=== PATIENT | female | born 1990 | race African-American/Black ===

== ENCOUNTER 2019-03-23 17:47 | Emergency (ER) | payer MEDICAID ==
[~2019-03-23] VITALS: Ht 167.6 cm; Wt 108.0 kg
[2019-03-23 18:20] VITALS: BP 179/103
--- NOTE | 2019-03-23 18:30 | PHYS DOC ---
Past Medical History Past Medical History: No Pertinent History (KARINE KANG APRN) Past Surgical History: Cholecystectomy (KARINE KANG APRN) Alcohol Use: None Drug Use: None (DEWEYDonavanKARINE APRN) Adult General Chief Complaint Chief Complaint: OTHER COMPLAINTS HPI HPI Patient is a 28 year old female who presents to the ED today requesting a test, she states her last menstrual cycle was February 13, 2019. She is a 6 para 6 denies any other symptoms. She is requesting a test only (KARINE KANG APRN) Review of Systems Review of Systems Constitutional: Denies fever or chills [] GI: Requesting a test. Denies abdominal pain, nausea, vomiting, bloody stools or diarrhea [] : Denies dysuria or hematuria [] Musculoskeletal: Denies back pain or joint pain [] Integument: Denies rash or skin lesions [] Neurologic: Denies headache, focal weakness or sensory changes [] All other systems were reviewed and found to be within normal limits, except as documented in this note. (DEWEYKARINE Go APRN) Physical Exam Physical Exam Constitutional: Well developed, well nourished, no acute distress, non-toxic appearance. [] Skin: Warm, dry, no erythema, no rash. [] Back: No tenderness, no CVA tenderness. [] Extremities: No tenderness, no cyanosis, no clubbing, ROM intact, no edema. [] Neurologic: Alert and oriented X 3, normal motor function, normal sensory function, no focal deficits noted. [] Psychologic: Affect normal, judgement normal, mood normal. [] (FREDOKARINE COLLINS APRN) Current Patient Data Vital Signs Vital Signs Date Time Temp Pulse Resp B/P (MAP) Pulse Ox O2 Delivery O2 Flow Rate FiO2 03/23/19 18:20 98.6 111 16 179/103 (128) 99 Room Air 98.6 (MARC QUAN MD) Lab Values Laboratory Tests Test 03/23/19 18:10 03/23/19 18:30 POC Urine HCG, Qualitative Hcg positive (Negative) Urine Collection Type Unknown Urine Color Yellow Urine Clarity Clear Urine pH 6.0 Urine Specific [place] >=1.030 Urine Protein Negative mg/dL (NEG-TRACE) Urine Glucose (UA) Negative mg/dL (NEG) Urine Ketones (Stick) Negative mg/dL (NEG) Urine Blood Negative (NEG) Urine Nitrite Negative (NEG) Urine Bilirubin Negative (NEG) Urine Urobilinogen Dipstick 1.0 mg/dL (0.2 mg/dL) Urine Leukocyte Esterase Negative (NEG) Urine RBC 0 /HPF (0-2) Urine WBC Occ /HPF (0-4) Urine Squamous Epithelial Cells Mod /LPF Urine Bacteria Few /HPF (0-FEW) Urine Mucus Marked /LPF Urine Yeast Present /HPF (MARC QUAN MD) EKG EKG [] (KARINE KANG APRN) Radiology/Procedures Radiology/Procedures [] (KARINE KANG APRN) Course & Med Decision Making Course & Med Decision Making Pertinent Labs and Imaging studies reviewed. (See chart for details) This is a 28-year-old female patient 6 para 6 presenting to the ED today requesting a test because she is late for her cycle. Her last menstrual cycle was February 13, 2019. Positive urine hCG. Discharged to home. Follow-up with an HYDRO SPRAYER OPERATOR. (KARINE KANG APRN) Course & Med Decision Making Staff Physician Addendum: I was working in the ER during the course of this patient's visit. I was available for consultation as needed, but I was not directly involved in the care of this patient. (MARC QUAN MD) Dragon Disclaimer Dragon Disclaimer This electronic medical record was generated, in whole or in part, using a voice recognition dictation system. (KARINE KANG APRN) Departure Departure Impression: Primary Impression: Disposition: 01 HOME, SELF-CARE Condition: STABLE Referrals: UNKNOWN PCP NAME (PCP) ADRI DEAN MD Follow-up with your HYDRO SPRAYER OPERATOR for care Patient Instructions: ABCs of Additional Instructions: Congratulations your test is positive. Please follow-up with your HYDRO SPRAYER OPERATOR as soon as possible, consider taking vitamins. Problem Qualifiers Primary Impression: Weeks of gestation: less than 8 weeks Qualified Codes: Z3A.01 - Less than 8 weeks gestation of KARINE KANG APRN Mar 23, 2019 18:30 MARC QUAN MD Mar 24, 2019 01:21
[2019-03-23 18:37] LABS: BILIRUBIN,URINE NEGATIVE (NEG); CLARITY,URINE CLEAR; COLOR,URINE YELLOW; NITRITE,URINE NEGATIVE (NEG); PROTEIN,URINE NEGATIVE (NEG-TRACE)
[2019-03-23 18:48] LABS: RBC,URINE 0 /HPF (0-2); WBC,URINE OCC /HPF (0-4)
[2019-03-23 18:49] LABS: BACTERIA,URINE FEW /HPF (0-FEW); SQUAMOUS EPITHELIAL CELL,UR MOD /LPF; YEAST,URINE PRESENT /HPF
[2019-05-10] MEDS ORDERED: PNV1TABL78 PO (12:36)
== END 2019-03-23 18:46 | disposition home or self-care (01) ==
LOC: ER 17:47
DX: Z34.81 Encounter for supervision of other normal pregnancy, first trimester (principal); Z90.49 Acquired absence of other specified parts of digestive tract; Z3A.01 Less than 8 weeks gestation of pregnancy
CPT/HCPCS: 81001; 81025; 99283

== ENCOUNTER 2019-05-02 20:54 | Emergency (ER) | payer MEDICAID ==
[~2019-05-02] VITALS: Ht 167.6 cm; Wt 110.2 kg
[2019-05-02 21:17] LABS: BILIRUBIN,URINE NEGATIVE (NEG); CLARITY,URINE CLOUDY; COLOR,URINE YELLOW; NITRITE,URINE NEGATIVE (NEG); PH,URINE 5.5; PROTEIN,URINE NEGATIVE (NEG-TRACE); UROBILINOGEN,URINE 0.2 mg/dL (0.2 mg/dL)
[2019-05-02 21:20] LABS: SQUAMOUS EPITHELIAL CELL,UR MANY /LPF
[2019-05-02 21:21] LABS: BACTERIA,URINE MODERATE /HPF (0-FEW); WBC,URINE >40 /HPF (0-4)
--- NOTE | 2019-05-02 21:24 | PHYS DOC ---
Past Medical History Past Medical History: No Pertinent History Past Surgical History: Cholecystectomy Alcohol Use: None Drug Use: None Adult General Chief Complaint Chief Complaint: VAGINAL BLEEDING HPI HPI 28-year-old female presents to the emergency department with complaints of vaginal bleeding. Patient's approximately 8+ weeks . Last nausea. February 13, 2019. Patient states she went to why she knows blood on her toilet paper, she is well describes a clear discharge. No blood in her underwear. She describes small sharp pain in her vagina upon arrival however otherwise unremarkable. Patient denies any past medical history. She denies any allergies to medications at this time aside from Benadryl. Patient's blood type is O+. Review of Systems Review of Systems Constitutional: Denies fever or chills [] Respiratory: Denies cough or shortness of breath [] Cardiovascular: No additional information not addressed in HPI [] GI: Denies abdominal pain, nausea, vomiting, bloody stools or diarrhea, spotting present on toilet paper[] : Denies dysuria or hematuria [] Neurologic: Denies headache, focal weakness or sensory changes [] Endocrine: Denies polyuria or polydipsia [] All other systems were reviewed and found to be within normal limits, except as documented in this note. Allergies Allergies Allergies Coded Allergies Type Severity Reaction Last Updated Verified camphor Allergy Intermediate 05/02/19 Yes diphenhydramine Allergy Intermediate 05/02/19 Yes eucalyptus Allergy Intermediate 05/02/19 Yes menthol Allergy Intermediate 05/02/19 Yes petrolatum,white Allergy Intermediate 05/02/19 Yes turpentine oil Allergy Intermediate 05/02/19 Yes Physical Exam Physical Exam Constitutional: Well developed, well nourished, no acute distress, non-toxic appearance. [] HENT: Normocephalic, atraumatic, bilateral external ears normal, oropharynx ti st, no oral exudates, nose normal. [] Eyes: PERRLA, EOMI, conjunctiva normal, no discharge. [] Neck: Normal range of motion, no tenderness, supple, no stridor. [] Cardiovascular:Heart rate regular rhythm, no murmur [] Lungs & Thorax: Bilateral breath sounds clear to auscultation [] Abdomen: Bowel sounds normal, soft, no tenderness, no masses, no pulsatile masses. [] : speculum exam reveals no bleeding, dark mucous within vault and some yeast present. No tenderness of cervix nor adnexa. Skin: Warm, dry, no erythema, no rash. [] Back: No tenderness, no CVA tenderness. [] Extremities: No tenderness, no cyanosis, no clubbing, ROM intact, no edema. [] Neurologic: Alert and oriented X 3, normal motor function, normal sensory function, no focal deficits noted. [] Psychologic: Affect normal, judgement normal, mood normal. [] Current Patient Data Vital Signs Vital Signs Date Time Temp Pulse Resp B/P (MAP) Pulse Ox O2 Delivery O2 Flow Rate FiO2 05/02/19 21:02 98.0 109 16 150/93 (112) 97 Room Air 98.0 Lab Values Laboratory Tests Test 05/02/19 20:59 05/02/19 21:10 05/02/19 21:18 Urine Collection Type Unknown Urine Color Yellow Urine Clarity Cloudy Urine pH 5.5 Urine Specific [place] 1.025 Urine Protein Negative mg/dL (NEG-TRACE) Urine Glucose (UA) Negative mg/dL (NEG) Urine Ketones (Stick) Negative mg/dL (NEG) Urine Blood Large (NEG) Urine Nitrite Negative (NEG) Urine Bilirubin Negative (NEG) Urine Urobilinogen Dipstick 0.2 mg/dL (0.2 mg/dL) Urine Leukocyte Esterase Moderate (NEG) Urine RBC 6-10 /HPF (0-2) Urine WBC >40 /HPF (0-4) Urine Squamous Epithelial Cells Many /LPF Urine Bacteria Moderate /HPF (0-FEW) Urine Mucus Marked /LPF POC Urine HCG, Qualitative Hcg positive (Negative) White Blood Count 7.4 x10^3/uL (4.0-11.0) Red Blood Count 4.14 x10^6/uL (3.50-5.40) Hemoglobin 12.8 g/dL (12.0-15.5) Hematocrit 38.0 % (36.0-47.0) Mean Corpuscular Volume 92 fL (79-100) Mean Corpuscular Hemoglobin 31 pg (25-35) Mean Corpuscular Hemoglobin Concent 34 g/dL (31-37) Red Cell Distribution Width 13.5 % (11.5-14.5) Platelet Count 259 x10^3/uL (140-400) Neutrophils (%) (Auto) 64 % (31-73) Lymphocytes (%) (Auto) 27 % (24-48) Monocytes (%) (Auto) 7 % (0-9) Eosinophils (%) (Auto) 2 % (0-3) Basophils (%) (Auto) 1 % (0-3) Neutrophils # (Auto) 4.7 x10^3/uL (1.8-7.7) Lymphocytes # (Auto) 2.0 x10^3/uL (1.0-4.8) Monocytes # (Auto) 0.5 x10^3/uL (0.0-1.1) Eosinophils # (Auto) 0.1 x10^3/uL (0.0-0.7) Basophils # (Auto) 0.1 x10^3/uL (0.0-0.2) Maternal Serum HCG Beta Subunit 8369 mIU/mL (0-5) H Sodium Level 139 mmol/L (136-145) Potassium Level 3.6 mmol/L (3.5-5.1) Chloride Level 103 mmol/L (98-107) Carbon Dioxide Level 24 mmol/L (21-32) Anion Gap 12 (6-14) Blood Urea Nitrogen 12 mg/dL (7-20) Creatinine 0.8 mg/dL (0.6-1.0) Estimated GFR (Cockcroft-Gault) 103.3 BUN/Creatinine Ratio 15 (6-20) Glucose Level 106 mg/dL (70-99) H Calcium Level 9.0 mg/dL (8.5-10.1) Total Bilirubin 0.2 mg/dL (0.2-1.0) Aspartate Amino Transferase (AST) 15 U/L (15-37) Alanine Aminotransferase (ALT) 13 U/L (14-59) L Alkaline Phosphatase 60 U/L (46-116) Total Protein 7.9 g/dL (6.4-8.2) Albumin 3.8 g/dL (3.4-5.0) Albumin/Globulin Ratio 0.9 (1.0-1.7) L Laboratory Tests 05/02/19 21:18 Laboratory Tests 05/02/19 21:18 EKG EKG [] Radiology/Procedures Radiology/Procedures [][facility] [address] [place] [address] IMAGING REPORT Signed PATIENT: INGRID MCLEAN ACCOUNT: [id number] : 1990 LOCATION: ER AGE: 28 SEX: F EXAM STATUS: REG ER ORD. PHYSICIAN: ADE ADAMS MD REASON: with bleeding PROCEDURE: OB TRANSVAG Examination: OB TRANSVAG History: with bleeding Comparison/Correlation: None Findings: Transvaginal OB ultrasound exam was performed. Uterus measures 12 cm x 7.6 x 6.9 cm. Intrauterine gestational sac is present with mean diameter corresponding to 7 weeks 2 days gestation. pole is present with crown-rump length of 1.1 cm corresponding to 7 weeks 2 day gestation. No heart rate identified. No cardiac motion visualized. Subchorionic hemorrhage is present. Myometrium is unremarkable. No pelvic free fluid. Right ovary measures 2.4 cm x 2.3 cm x 1.9 cm. No right adnexal mass. Normal right adnexal flow evident. Left ovary is not visualized. Impression: Single intrauterine gestation is present. Heart rate and cardiac motion however are not identified in those the pole has a crown-rump length measurement corresponding 7 weeks 2 days gestation. Findings compatible with failed early . Subchorionic hemorrhage. Electronically signed by: Mandeep Chavez MD (05/02/2019 10:15 PM) [facility] DICTATED and SIGNED BY: MANDEEP CHAVEZ MD DATE: 05/02/19 2061 Course & Med Decision Making Course & Med Decision Making Pertinent Labs and Imaging studies reviewed. (See chart for details) []28-year-old female presents to the emergency department with complaints of vaginal bleeding. Patient's approximately 8+ weeks . Last nausea. February 13, 2019. Patient states she went to why she knows blood on her toilet paper, she is well describes a clear discharge. No blood in her underwear. She describes small sharp pain in her vagina upon arrival however otherwise unremarkable. Patient denies any past medical history. She denies any allergies to medications at this time aside from Benadryl. Patient's blood type is O+. Labs/Imaging reviewed Imaging reveals demise Discussed with DR. KENNEY - will see patient in office this week and follow up Discussed dc with patient at bedside Jeremy Disclaimer Jeremy Disclaimer This electronic medical record was generated, in whole or in part, using a voice recognition dictation system. Departure Departure Impression: Primary Impression: demise Referrals: UNKNOWN PCP NAME (PCP) FELIZ KENNEY Jr, MD Patient Instructions: Intrauterine Demise Additional Instructions: Recommend follow up with PCP 3 - 5 days Return to the ER with worsening symptoms, intractable pain, fever, altered mental status Tylenol/Motrin as needed for pain Call Dr. Kenney office in AM for follow up this week Beta HCG 8300 ADE ADAMS MD May 02, 2019 21:24
[2019-05-02 21:29] LABS: BASO # 0.1 x10^3/uL (0.0-0.2); BASO % 1 % (0-3); EOS # 0.1 x10^3/uL (0.0-0.7); EOS % 2 % (0-3); HEMOGLOBIN 12.8 g/dL (12.0-15.5); LYMPH % 27 % (24-48); MEAN CORPUSCULAR HEMOGLOBIN 31 pg (25-35); MEAN CORPUSCULAR HGB CONC 34 g/dL (31-37); MEAN CORPUSCULAR VOLUME 92 fL (79-100); MONO # 0.5 x10^3/uL (0.0-1.1); MONO % 7 % (0-9); NEUT # 4.7 x10^3/uL (1.8-7.7); NEUT % 64 % (31-73); PLATELET COUNT 259 x10^3/uL (140-400); RED BLOOD COUNT 4.14 x10^6/uL (3.50-5.40); RED CELL DISTRIBUTION WIDTH 13.5 % (11.5-14.5); WHITE BLOOD COUNT 7.4 x10^3/uL (4.0-11.0)
[2019-05-02 21:36] LABS: CREATININE 0.8 mg/dL (0.6-1.0); GFR 103.3; POTASSIUM 3.6 mmol/L (3.5-5.1)
[2019-05-02 21:43] LABS: ALBUMIN 3.8 g/dL (3.4-5.0); ALBUMIN/GLOBULIN RATIO 0.9 (1.0-1.7); TOTAL BILIRUBIN 0.2 mg/dL (0.2-1.0); TOTAL PROTEIN 7.9 g/dL (6.4-8.2)
--- NOTE | 2019-05-02 22:17 | RAD ---
Examination: OB TRANSVAG History: with bleeding Comparison/Correlation: None Findings: Transvaginal OB ultrasound exam was performed. Uterus measures 12 cm x 7.6 x 6.9 cm. Intrauterine gestational sac is present with mean diameter corresponding to 7 weeks 2 days gestation. pole is present with crown-rump length of 1.1 cm corresponding to 7 weeks 2 day gestation. No heart rate identified. No cardiac motion visualized. Subchorionic hemorrhage is present. Myometrium is unremarkable. No pelvic free fluid. Right ovary measures 2.4 cm x 2.3 cm x 1.9 cm. No right adnexal mass. Normal right adnexal flow evident. Left ovary is not visualized. Impression: Single intrauterine gestation is present. Heart rate and cardiac motion however are not identified in those the pole has a crown-rump length measurement corresponding 7 weeks 2 days gestation. Findings compatible with failed early . Subchorionic hemorrhage. Electronically signed by: Mandeep Schmitz MD (05/02/2019 10:15 PM) [facility]
[2019-05-02 23:09] VITALS: BP 155/105
== END 2019-05-02 23:47 | disposition home or self-care (01) ==
LOC: ER 20:54
DX: O36.4XX0 Maternal care for intrauterine death, not applicable or unspecified (principal); Z3A.01 Less than 8 weeks gestation of pregnancy; Z90.49 Acquired absence of other specified parts of digestive tract; Z88.5 Allergy status to narcotic agent; Z88.8 Allergy status to other drugs, medicaments and biological substances; Z91.018 Allergy to other foods
CPT/HCPCS: 36415; 76817; 80053; 81001; 81025; 84702; 85025; 86900; 86901; 87086; 99285-25

== ENCOUNTER 2019-05-11 11:21 | Day surgery (SDC) | payer MEDICAID ==
[~2019-05-11] VITALS: Ht 167.6 cm; Wt 107.0 kg
[~2019-05-11 11:21] MED LIST: HYDROmorphone 2 MG/ML VIAL IV PRN; IV RINGERS,LACTATED 1000ML 1,000 ML IV SCH; LIDOCAINE 1% PF 2 ML VIAL. ID PRN; MORPHINE SULFATE 2 MG/ML VIAL. IV PRN; ONDANSETRON PF 4 MG/2 ML VIAL. IV PRN; PNV1TABL78 PO; PROCHLORPERAZINE 10 MG/2 ML VIAL. IV PRN; fentaNYL PF VIAL 100 MCG/2 ML VIAL IV PRN
[2019-05-11 12:46] LABS: BASO # 0.1 x10^3/uL (0.0-0.2); BASO % 1 % (0-3); EOS # 0.1 x10^3/uL (0.0-0.7); EOS % 2 % (0-3); HEMATOCRIT 38.2 % (36.0-47.0); HEMOGLOBIN 12.7 g/dL (12.0-15.5); LYMPH # 1.9 x10^3/uL (1.0-4.8); LYMPH % 30 % (24-48); MEAN CORPUSCULAR HEMOGLOBIN 31 pg (25-35); MEAN CORPUSCULAR HGB CONC 33 g/dL (31-37); MEAN CORPUSCULAR VOLUME 93 fL (79-100); MONO # 0.4 x10^3/uL (0.0-1.1); MONO % 6 % (0-9); NEUT # 3.9 x10^3/uL (1.8-7.7); NEUT % 61 % (31-73); PLATELET COUNT 219 x10^3/uL (140-400); RED BLOOD COUNT 4.12 x10^6/uL (3.50-5.40); RED CELL DISTRIBUTION WIDTH 13.3 % (11.5-14.5); WHITE BLOOD COUNT 6.3 x10^3/uL (4.0-11.0)
[2019-05-11] MEDS ORDERED: ceFAZolin 2GM PREMIX 2 GM/50 ML BAG IV ONE (14:00)
[2019-05-11] MEDS ORDERED: OXYTOCIN 10 UNIT/ML VIAL. ONE ×2 (14:01→15:06)
[2019-05-11] MEDS ORDERED: VASOPRESSIN 20 UNIT/ML VIAL. ONE ×2 (14:01→14:03)
[2019-05-11] MEDS ORDERED: KETOROLAC 30 MG/ML VIAL. ONE ×2 (14:50→14:57)
[2019-05-11] MEDS ORDERED: LIDOCAINE 2% PF 5 ML VIAL. ONE (14:50)
[2019-05-11] MEDS ORDERED: FAMOTIDINE 20 MG/2 ML VIAL ONE (14:50)
[2019-05-11] MEDS ORDERED: DEXAMETHASONE SOD PHOS 20 MG/5 ML VIAL. ONE (14:50)
[2019-05-11] MEDS ORDERED: PROPOFOL 20 ML IV ONE (14:50)
[2019-05-11] MEDS ORDERED: fentaNYL PF VIAL 100 MCG/2 ML VIAL ONE ×2 (14:50→15:43)
[2019-05-11] MEDS ORDERED: ONDANSETRON PF 4 MG/2 ML VIAL. ONE (14:50)
[2019-05-11] MEDS ORDERED: SEVOFLURANE 16 TO 30 MINUTES. IH ONE (15:12)
[2019-05-11] MEDS ORDERED: SILVER NITRATE STICK TP ONE ×2 (15:14→15:15)
--- NOTE | 2019-05-11 15:22 | PDOC ---
BRIEF OPERATIVE NOTE Date: May 11, 2019 Pre-Op Diagnosis Missed AB Post-Op Diagnosis Same Procedure Performed Suction D&C Surgeon Dr. Kenney Anesthesia Type: General Blood Loss 200 ml Specimens Obtained POC Findings POC Complications none Operative Note see dictation FELIZ KENNEY Jr, MD May 11, 2019 15:22
--- NOTE | 2019-05-11 15:24 | DISCH ---
DISCHARGE INSTRUCTIONS Condition on Discharge Condition on Discharge: Stable Activity After Discharge Activity Instructions for Disc: Activity as tolerated Lifting Instructions after Dis: No heavy lifting Driving Instructions after Dis: Do not drive today Diet after Discharge Diet after Discharge: Regular Contacting the DRRiley after DC Call your doctor for: Concerns you may have Follow-Up Follow up with: Dr. Kenney in 1 week. FELIZ KENNEY Jr, MD May 11, 2019 15:24
[2019-05-11] MEDS ORDERED: PROCHLORPERAZINE 10 MG/2 ML VIAL. ONE (15:43)
[2019-05-11] MEDS ORDERED: OXYC-325 PO (16:23)
[2019-05-11] MEDS ORDERED: oxyCODONE/APAP 5/325 1 TAB TABLET PO ONE (16:30)
[2019-05-11 16:35] VITALS: BP 130/84
--- NOTE | 2019-05-11 21:08 | OP ---
DATE OF SURGERY: 05/11/2019 PREOPERATIVE DIAGNOSIS: Missed . POSTOPERATIVE DIAGNOSIS: Missed . PROCEDURE: Suction D and C. SURGEON: Jaspreet Kenney MD ANESTHESIA: GETA. ESTIMATED BLOOD LOSS: 100 mL. COMPLICATIONS: None. FINDINGS: Products of conception. SUMMARY: This is a 28-year-old with a 7-week missed who was counseled on risks, benefits and expectations of suction D and C. She then desired to proceed. DESCRIPTION OF PROCEDURE: The patient was taken to surgery suite and placed in dorsal lithotomy position, prepped with Betadine solution and draped in a sterile fashion. After adequate anesthesia, weighted speculum and curved Coleman placed vaginally. Anterior lip of the cervix grasped with a single tooth tenaculum. Cervix was dilated with Baugh dilators. An 8 mm curved-tip suction curette was then passed, removing tissue and blood products. A sharp curettage took place to the fine gritty surface palpated circumferentially. Suction curette was passed once again removing additional blood products and products of conception. The single tooth tenaculum was removed. Silver nitrate was applied to the area where the single tooth tenaculum was placed for hemostasis. Weighted speculum was removed. Uterus palpated firm. The patient tolerated the procedure well and was taken to recovery room in stable condition. Sponge and needle count correct x 3. JASPREET KENNEY MD DR: VIVIANA/elly JOB#: [id number] / [id number]
== END 2019-05-11 17:05 | disposition home or self-care (01) ==
LOC: SURG 11:21
PROVIDERS: ATTEND Obstetrics & Gynecology
DX: O02.1 Missed abortion (principal); G43.909 Migraine, unspecified, not intractable, without status migrainosus; G47.30 Sleep apnea, unspecified; F32.9 Major depressive disorder, single episode, unspecified; F41.9 Anxiety disorder, unspecified; E66.9 Obesity, unspecified; Z68.38 Body mass index [BMI] 38.0-38.9, adult; Z90.49 Acquired absence of other specified parts of digestive tract
CPT/HCPCS: 36415; 59820; 85025; 86850; 86900; 86901; A7015; J0696; J0780; J1100; J1885; J2001; J2405; J2590; J2704; J3010; J3490

== ENCOUNTER 2019-10-10 16:37 | Emergency (ER) | payer MEDICAID ==
[~2019-10-10] VITALS: Ht 167.6 cm; Wt 107.7 kg
[~2019-10-10 16:37] MED LIST changes: -HYDROmorphone 2 MG/ML VIAL IV PRN; -IV RINGERS,LACTATED 1000ML 1,000 ML IV SCH; -LIDOCAINE 1% PF 2 ML VIAL. ID PRN; -MORPHINE SULFATE 2 MG/ML VIAL. IV PRN; -ONDANSETRON PF 4 MG/2 ML VIAL. IV PRN; +OXYC-325 PO; -PROCHLORPERAZINE 10 MG/2 ML VIAL. IV PRN; -fentaNYL PF VIAL 100 MCG/2 ML VIAL IV PRN
[2019-10-10 18:09] LABS: BASO # 0.1 x10^3/uL (0.0-0.2); BASO % 1 % (0-3); EOS # 0.1 x10^3/uL (0.0-0.7); EOS % 2 % (0-3); HEMATOCRIT 34.6 % (36.0-47.0); HEMOGLOBIN 11.7 g/dL (12.0-15.5); LYMPH # 1.7 x10^3/uL (1.0-4.8); LYMPH % 22 % (24-48); MEAN CORPUSCULAR HEMOGLOBIN 31 pg (25-35); MEAN CORPUSCULAR HGB CONC 34 g/dL (31-37); MEAN CORPUSCULAR VOLUME 92 fL (79-100); MONO # 0.5 x10^3/uL (0.0-1.1); MONO % 6 % (0-9); NEUT # 5.6 x10^3/uL (1.8-7.7); NEUT % 70 % (31-73); PLATELET COUNT 235 x10^3/uL (140-400); RED BLOOD COUNT 3.77 x10^6/uL (3.50-5.40); RED CELL DISTRIBUTION WIDTH 13.6 % (11.5-14.5)
[2019-10-10 18:37] VITALS: BP 144/95
[2019-10-10] MEDS ORDERED: OMEP20CA16 PO (18:38)
--- NOTE | 2019-10-10 18:38 | PHYS DOC ---
Past Medical History Past Medical History: No Pertinent History Past Surgical History: Cholecystectomy Smoking Status: Never Smoker Alcohol Use: None Drug Use: None General Adult EDM: Chief Complaint: HEMATEMESIS/VOMITING BLOOD HPI: HPI: Patient is a 29 year old AA female who presents to the emergency department with complaints of bloody drainage in her throat for the last 4 days. Patient states she is currently , she is 8, para 6, with 1 miscarriage prior to 20 weeks. She denies any abdominal pain, vaginal bleeding, back pain, irregular vaginal discharge, dysuria, hematuria, fever, nausea, vomiting, or diarrhea. Patient states that she has had a little bit of nasal congestion recently that seems to be worse in the morning. She denies having a cough she states that every once in a while she will just produce a blood clot that comes up from her stomach into her throat. She currently denies any pain. She states she has had problems with indigestion throughout this but is not taking any medications for indigestion at this time. Her AIRCRAFT POWERPLANT REPAIRER is Dr. Kenney. Review of Systems: Review of Systems: Constitutional: Denies fever or chills. [] HENT: Denies ear pain or sore throat; see HPI. [] Respiratory: Denies cough or shortness of breath. [] Cardiovascular: Denies chest pain or edema. [] GI: Denies abdominal pain, nausea, vomiting, or diarrhea. [] : Denies dysuria. [] Musculoskeletal: Denies back pain or joint pain. [] Integument: Denies rash. [] Neurologic: Denies headache, focal weakness or sensory changes. [] Psychiatric: Denies depression or anxiety. [] Heart Score: Risk Factors: Risk Factors: DM, Current or recent (<one month) smoker, HTN, HLP, family history of CAD, obesity. Risk Scores: Score 0 - 3: 2.5% MACE over next 6 weeks - Discharge Home Score 4 - 6: 20.3% MACE over next 6 weeks - Admit for Clinical Observation Score 7 - 10: 72.7% MACE over next 6 weeks - Early Invasive Strategies Allergies: Allergies: Allergies Coded Allergies Type Severity Reaction Last Updated Verified camphor Allergy Intermediate 05/11/19 Yes diphenhydramine Allergy Intermediate 05/11/19 Yes eucalyptus Allergy Intermediate 05/11/19 Yes menthol Allergy Intermediate 05/11/19 Yes petrolatum,white Allergy Intermediate 05/11/19 Yes turpentine oil Allergy Intermediate 05/11/19 Yes Physical Exam: PE: Constitutional: Well developed, well nourished, no acute distress, non-toxic appearance. [] HENT: Normocephalic, atraumatic, bilateral external ears normal, oropharynx moist, no oral exudates, erythema and edema of bilateral nasal turbinates, posterior pharynx normal, Eyes: PERRLA, EOMI, conjunctiva normal, no discharge. [] Neck: Normal range of motion, supple, no stridor. [] Cardiovascular:Heart rate regular rhythm, no murmur [] Lungs & Thorax: Bilateral breath sounds clear to auscultation, Respirations even and unlabored, no retractions, no respiratory distress [] Abdomen: Bowel sounds normal, soft, no tenderness Skin: Warm, dry, no erythema, no rash. [] Extremities: No cyanosis, ROM intact, no edema. [] Neurologic: Alert and oriented X 3, no focal deficits noted. [] Psychologic: Affect normal, judgement normal, mood normal. [] Current Patient Data: Labs: Laboratory Tests Test 10/10/19 17:59 White Blood Count 8.0 x10^3/uL (4.0-11.0) Red Blood Count 3.77 x10^6/uL (3.50-5.40) Hemoglobin 11.7 g/dL (12.0-15.5) L Hematocrit 34.6 % (36.0-47.0) L Mean Corpuscular Volume 92 fL (79-100) Mean Corpuscular Hemoglobin 31 pg (25-35) Mean Corpuscular Hemoglobin Concent 34 g/dL (31-37) Red Cell Distribution Width 13.6 % (11.5-14.5) Platelet Count 235 x10^3/uL (140-400) Neutrophils (%) (Auto) 70 % (31-73) Lymphocytes (%) (Auto) 22 % (24-48) L Monocytes (%) (Auto) 6 % (0-9) Eosinophils (%) (Auto) 2 % (0-3) Basophils (%) (Auto) 1 % (0-3) Neutrophils # (Auto) 5.6 x10^3/uL (1.8-7.7) Lymphocytes # (Auto) 1.7 x10^3/uL (1.0-4.8) Monocytes # (Auto) 0.5 x10^3/uL (0.0-1.1) Eosinophils # (Auto) 0.1 x10^3/uL (0.0-0.7) Basophils # (Auto) 0.1 x10^3/uL (0.0-0.2) Laboratory Tests 10/10/19 17:59 Vital Signs: Vital Signs Date Time Temp Pulse Resp B/P (MAP) Pulse Ox O2 Delivery O2 Flow Rate FiO2 10/10/19 16:41 98.5 102 20 147/73 (97) 100 Room Air 98.5 EKG: EKG: [] Radiology/Procedures: Radiology/Procedures: [] Course & Med Decision Making: Course & Med Decision Making Pertinent Labs and Imaging studies reviewed. (See chart for details) Patient is a 29-year-old female who presented to the emergency room with complaints of having episodes where she is producing bloody mucus from her throat for the last 4 days. CBC revealed hemoglobin of 11.7, hematocrit of 34.6, physical exam revealed erythema and edema of nasal turbinates bilaterally no post nasal drainage on exam. I spoke with Dr. Kenney at approximately 1813 and advised of reports of indigestion from the patient. Will prescribe patient omeprazole 20 mg PO daily and encourage patient to follow GERD diet. Pt to follow up with Dr. Kenney as planned. Return to the ER if symptoms worsen or fever develops. Patient verbalized an understanding of home care, medications, follow-up, and return to ED instructions and was in agreement with the plan of care. [] Dragon Disclaimer: Dragon Disclaimer: This electronic medical record was generated, in whole or in part, using a voice recognition dictation system. Departure Departure Impression: Primary Impression: GERD (gastroesophageal reflux disease) Qualified Codes: K21.9 - Gastro-esophageal reflux disease without esophagitis Disposition: HOME, SELF-CARE Condition: STABLE Referrals: NO PCP (PCP) FELIZ KENNEY Jr, MD Patient Instructions: Diet for Gastroesophageal Reflux Disease, Adult, He artburn During , [id number] Additional Instructions: Fill the prescription and use as directed. Follow the diet instructions provided. Follow up with Dr. Kenney as planned. Return to the ER if symptoms worsen. Scripts Omeprazole (OMEPRAZOLE) 20 Mg Capsule.dr 1 CAP PO DAILY for 30 Days, #30 CAP 0 Refills Prov: IKE ZEPEDA CONTRACTOR FIELD HAULING 10/10/19 IKE ZEPEDA CONTRACTOR FIELD HAULING Oct 10, 2019 18:38
== END 2019-10-10 18:44 | disposition home or self-care (01) ==
LOC: ER 16:37
DX: O26.891 Other specified pregnancy related conditions, first trimester (principal); O99.511 Diseases of the respiratory system complicating pregnancy, first trimester; K21.9 Gastro-esophageal reflux disease without esophagitis; R09.81 Nasal congestion; R05 Cough; Z90.49 Acquired absence of other specified parts of digestive tract; Z91.018 Allergy to other foods; Z88.8 Allergy status to other drugs, medicaments and biological substances; Z88.6 Allergy status to analgesic agent; Z3A.13 13 weeks gestation of pregnancy
CPT/HCPCS: 36415; 85025; 99283

== ENCOUNTER → 2019-11-01 | Outpatient (CLI) | payer MEDICAID ==
[2019-10-10 18:37] VITALS: BP 144/95
[~2019-11-01] MED LIST changes: +OMEP20CA16 PO
--- NOTE | 2019-11-01 13:04 | RAD ---
EXAM: Obstetrics sonogram. HISTORY: Uterine size and dates discrepancy. TECHNIQUE: Sonographic imaging of a gravid uterus was performed. COMPARISON: 05/02/2019. FINDINGS: There is a single intrauterine fetus in presentation with a normal heart rate of 147 bpm. The heart, stomach, kidneys, bladder, spine, brain, facial profile and extremities are unremarkable. There is a three-vessel umbilical cord with normal insertion. There is a normal amniotic fluid volume. There is an anterior placenta without evidence of placenta previa. The cervix is closed and measures 6.1 cm in length. The biparietal diameter is 4.60 cm, corresponding with 19 weeks and 6 days. The head circumference is 17.69 cm, corresponding with 20 weeks and 1 day. The abdominal circumference is 14.13 cm, corresponding 19 weeks and 3 days. The femoral length is 3.36 cm, corresponding with 20 weeks and 4 days. The estimated gestational age patient combined ultrasound measurements is 20 weeks and 0 days and the estimated weight is 326 g. The estimated due date is 03/20/2020. IMPRESSION: 1. Single intrauterine fetus in breech presentation with normal heart rate and gestational age based on ultrasound measurements of 20 weeks and 0 days. The estimated gestational age based on LMP is 20 weeks and 4 days. 2. Unremarkable anatomy survey. Electronically signed by: Rocio Hinojosa MD (11/01/2019 1:01 PM) [id number]
== END | disposition home or self-care (01) ==
LOC: US 11:58
PROVIDERS: ATTEND Obstetrics & Gynecology
DX: O26.842 Uterine size-date discrepancy, second trimester (principal); O32.1XX1 Maternal care for breech presentation, fetus 1; Z3A.20 20 weeks gestation of pregnancy
CPT/HCPCS: 76805

== ENCOUNTER → 2020-02-29 | Outpatient (CLI) | payer MEDICAID | END | disposition home or self-care (01) | LOC: LAB 14:10 | PROVIDERS: ATTEND Obstetrics & Gynecology | DX: Z20.828 Contact with and (suspected) exposure to other viral communicable diseases (principal) | CPT/HCPCS: U0003-CS ==

== ENCOUNTER 2020-03-04 18:33 | Inpatient (IN) | payer MEDICAID ==
[~2020-03-04] VITALS: Ht 167.6 cm; Wt 117.5 kg
[2020-03-04] MEDS ORDERED: IV RINGERS,LACTATED 1000ML 1,000 ML IV SCH (18:48)
[2020-03-04] MEDS ORDERED: BUTORPHANOL 2 MG/ML VIAL. IVP PRN ×2 (19:00)
[2020-03-04] MEDS ORDERED: fentaNYL PF VIAL 100 MCG/2 ML VIAL IVP PRN ×2 (19:00)
[2020-03-04] MEDS ORDERED: TERBUTALINE 1 MG/ML VIAL. SQ PRN (19:00)
[2020-03-04] MEDS ORDERED: LIDOCAINE 1% PF 30 ML VIAL. INJ PRN (19:00)
[2020-03-04] MEDS ORDERED: 0.9 % SODIUM CHLORIDE 10 ML DISP.SYRIN. IV PRN (19:00)
[2020-03-04] MEDS ORDERED: OXYTOCIN 30 UNIT/500 ML PREMIX 500 ML IV PRN ×2 (19:00)
[2020-03-04] MEDS ORDERED: ACETAMINOPHEN 325 MG TABLET. PO PRN (19:00)
[2020-03-04] MEDS ORDERED: IBUPROFEN 400 MG TABLET. PO PRN (19:00)
[2020-03-04] MEDS ORDERED: ONDANSETRON PF 4 MG/2 ML VIAL. IVP PRN (19:00)
[2020-03-04 19:46] VITALS: BP 117/65
[2020-03-04 19:53] LABS: BASO % 1 % (0-3); EOS # 0.1 x10^3/uL (0.0-0.7); EOS % 2 % (0-3); HEMATOCRIT 32.7 % (36.0-47.0); HEMOGLOBIN 11.2 g/dL (12.0-15.5); LYMPH # 1.4 x10^3/uL (1.0-4.8); LYMPH % 18 % (24-48); MEAN CORPUSCULAR HEMOGLOBIN 32 pg (25-35); MEAN CORPUSCULAR HGB CONC 34 g/dL (31-37); MEAN CORPUSCULAR VOLUME 92 fL (79-100); MONO # 0.6 x10^3/uL (0.0-1.1); MONO % 7 % (0-9); NEUT # 5.8 x10^3/uL (1.8-7.7); NEUT % 73 % (31-73); PLATELET COUNT 200 x10^3/uL (140-400); RED BLOOD COUNT 3.54 x10^6/uL (3.50-5.40); RED CELL DISTRIBUTION WIDTH 13.6 % (11.5-14.5)
[2020-03-04 19:54] LABS: BILIRUBIN,URINE NEGATIVE (NEG); CLARITY,URINE CLEAR; COLOR,URINE YELLOW; NITRITE,URINE NEGATIVE (NEG); PH,URINE 5.5 (<5.0-8.0); PROTEIN,URINE NEGATIVE (NEG-TRACE); UROBILINOGEN,URINE 0.2 mg/dL (0.2 mg/dL)
[2020-03-04] MEDS ORDERED: DINOPROSTONE 10 MG SUPP.VAG VG ONE (20:00)
[2020-03-04] MEDS ORDERED: PENICILLIN G K 5,000,000 UNIT in IV DEXTROSE 5% 100ML 100 ML IV ONE (20:00)
[2020-03-04 20:01] LABS: SQUAMOUS EPITHELIAL CELL,UR MANY /LPF
[2020-03-04 20:02] LABS: BACTERIA,URINE FEW /HPF (0-FEW); RBC,URINE 0 /HPF (0-2)
[2020-03-05] MEDS: PENICILLIN G K 2,500,000 UNIT in IV DEXTROSE 5% 50 ML IV SCH ×4 (01:53→13:48)
[2020-03-05] MEDS ORDERED: OXYTOCIN PREMIX 30 UNIT/500 ML NS BAG. IV ONE (06:00)
--- NOTE | 2020-03-05 08:36 | PDOC1 ---
OB - History Hx of Present Care: Good Care Ultrasounds: Normal mid trimester US Obstetrical Complications: None Medical Complications: Other (CHTN) Past Family/Social History * Past Medical, Surgical, Family and Obstetric Histories reviewed from chart. Rubella: Immune RPR/VDRL: Negative GBS Status: Positive HBsAG: Negative OB - Chief Complaint & HPI Date of Admission: Date of Admission: Mar 04, 2020 at 18:33 Chief Complaint/History : 9 Para: 6 EGA: 38 Reason for admission: induction of labor (CHTN) Indication for induction: medical complication (CHTN) Admission Nurse Assessment Rev: Yes OB - Admission Exam Physical Exam Vitals: VS - Last 72 Hours, by Label Date Time Temp Pulse Resp B/P (MAP) Pulse Ox O2 Delivery O2 Flow Rate FiO2 03/05/20 07:46 84 138/90 03/04/20 19:46 98.8 130 18 117/65 (82) Room Air 98.8 HEENT: Normal Heart: Regular Rate Lungs: Clear Abdomen: Soft Extremities: Edema Reflexes: Normal Cervical Dilatation: 2cm Effacement: 50% Station: -3 Membranes: Intact Heart Rate: Normal Accelerations: Accelerations Present Decelerations: No decelerations Contractions on Admission: None Text A: 38 wks IUP CHTN GBS positive P: Admit IOL cervidil, then pitocin in am. Start Pen G in am for GBS prophylaxis. FELIZ LANG Jr, MD Mar 05, 2020 08:36
[2020-03-05] MEDS ORDERED: hydrALAZINE 20 MG/ML VIAL. IVP PRN (16:15)
--- NOTE | 2020-03-05 16:52 | PDOC ---
VAGINAL DELIVERY DATE DATE: 03/05/20 TIME: 16:49 : Other (9) Para: 5 EGA: 38 VAGINAL DELIVERY: VTX VACCUM ASSISTED: No PLACENTA: Spontaneous 02/03 SEX: Female WEIGHT Weight [ pending] Nuchal Cord: No Amniotic Fluid: Clear PAIN: Natural EPISIOTOMY: No EXTENSION: No EBL 300 ml COMPLICATIONS none CONDITION pt. stable Signs of Intrauterine Infectio: None Shoulder Dystocia: No FELIZ LANG Jr, MD Mar 05, 2020 16:52
[2020-03-05] MEDS ORDERED: MMR per PROTOCOL. MC PRN (17:00)
[2020-03-05] MEDS ORDERED: BENZOCAINE 20% TOPICAL AEROSOL SPRAY 57GM CAN. TP PRN (17:00)
[2020-03-05] MEDS ORDERED: MAGNESIUM HYDROXIDE 2,400 MG/30 ML ORAL.SUSP. PO PRN (17:00)
[2020-03-05] MEDS ORDERED: ACETAMINOPHEN 325 MG TABLET. PO PRN (17:00)
[2020-03-05] MEDS ORDERED: ZOLPIDEM 5 MG TABLET. PO PRN (17:00)
[2020-03-05] MEDS ORDERED: oxyCODONE/APAP 5/325 1 TAB TABLET PO PRN (17:00)
[2020-03-05] MEDS ORDERED: HYDROCORTISONE 1% TOPICAL OINTMENT 30GM TUBE. TP PRN (17:00)
[2020-03-05] MEDS ORDERED: TDaP (Adacel) per PROTOCOL. MC PRN (17:00)
[2020-03-05] MEDS ORDERED: MAG HYDROX/ALUMINUM HYD/SIMETH 30 ML ORAL.SUSP PO PRN (17:00)
[2020-03-05] MEDS ORDERED: PHENYLEPH/MINERAL OIL/PETROLAT RECTAL OINTMENT TUBE. RC PRN (17:00)
[2020-03-05] MEDS ORDERED: OXYTOCIN 30 UNIT/500 ML PREMIX 500 ML IV PRN (17:00)
[2020-03-05] MEDS ORDERED: 0.9 % SODIUM CHLORIDE 10 ML DISP.SYRIN. IV PRN (17:00)
[2020-03-05] MEDS ORDERED: SIMETHICONE 80 MG TAB.CHEW PO PRN (17:00)
[2020-03-05] MEDS: IBUPROFEN 400 MG TABLET. PO PRN (19:31)
[2020-03-05 21:05] VITALS: BP 121/74
[2020-03-05 22:03] VITALS: BP 117/76
[2020-03-06 02:31] VITALS: BP 132/76
[2020-03-06 05:28] LABS: BASO % 0 % (0-3); EOS # 0.2 x10^3/uL (0.0-0.7); EOS % 1 % (0-3); HEMATOCRIT 32.3 % (36.0-47.0); LYMPH # 1.7 x10^3/uL (1.0-4.8); LYMPH % 15 % (24-48); MEAN CORPUSCULAR HEMOGLOBIN 32 pg (25-35); MEAN CORPUSCULAR HGB CONC 34 g/dL (31-37); MEAN CORPUSCULAR VOLUME 93 fL (79-100); MONO # 0.9 x10^3/uL (0.0-1.1); MONO % 8 % (0-9); NEUT # 8.4 x10^3/uL (1.8-7.7); NEUT % 75 % (31-73); PLATELET COUNT 186 x10^3/uL (140-400); RED BLOOD COUNT 3.46 x10^6/uL (3.50-5.40); WHITE BLOOD COUNT 11.1 x10^3/uL (4.0-11.0)
[2020-03-06 06:54] VITALS: BP 115/65
[2020-03-06] MEDS ORDERED: FERROUS SULFATE 325 MG TABLET. PO SCH (08:00)
[2020-03-06] MEDS: DOCUSATE SODIUM 100 MG CAPSULE. PO PRN (08:56)
[2020-03-06] MEDS: IBUPROFEN 400 MG TABLET. PO PRN ×2 (08:56→20:15)
[2020-03-06] MEDS: MULTIVITAMIN with MINERAL TABLET. PO SCH (08:56)
[2020-03-06 09:24] VITALS: BP 128/85
--- NOTE | 2020-03-06 12:18 | PDOC ---
OB Progress Note Date of Service 03/06/20 Time of Evaluation 1215 Notes Pt. feeling well. BP well controlled. Will decrease to Procardia 30mg daily. Lab Laboratory Tests Test 03/04/20 19:48 03/06/20 05:18 White Blood Count 8.0 x10^3/uL (4.0-11.0) 11.1 x10^3/uL (4.0-11.0) Red Blood Count 3.54 x10^6/uL (3.50-5.40) 3.46 x10^6/uL (3.50-5.40) Hemoglobin 11.2 g/dL (12.0-15.5) 11.0 g/dL (12.0-15.5) Hematocrit 32.7 % (36.0-47.0) 32.3 % (36.0-47.0) Mean Corpuscular Volume 92 fL (79-100) 93 fL (79-100) Mean Corpuscular Hemoglobin 32 pg (25-35) 32 pg (25-35) Mean Corpuscular Hemoglobin Concent 34 g/dL (31-37) 34 g/dL (31-37) Red Cell Distribution Width 13.6 % (11.5-14.5) 14.0 % (11.5-14.5) Platelet Count 200 x10^3/uL (140-400) 186 x10^3/uL (140-400) Neutrophils (%) (Auto) 73 % (31-73) 75 % (31-73) Lymphocytes (%) (Auto) 18 % (24-48) 15 % (24-48) Monocytes (%) (Auto) 7 % (0-9) 8 % (0-9) Eosinophils (%) (Auto) 2 % (0-3) 1 % (0-3) Basophils (%) (Auto) 1 % (0-3) 0 % (0-3) Neutrophils # (Auto) 5.8 x10^3/uL (1.8-7.7) 8.4 x10^3/uL (1.8-7.7) Lymphocytes # (Auto) 1.4 x10^3/uL (1.0-4.8) 1.7 x10^3/uL (1.0-4.8) Monocytes # (Auto) 0.6 x10^3/uL (0.0-1.1) 0.9 x10^3/uL (0.0-1.1) Eosinophils # (Auto) 0.1 x10^3/uL (0.0-0.7) 0.2 x10^3/uL (0.0-0.7) Basophils # (Auto) 0.0 x10^3/uL (0.0-0.2) 0.0 x10^3/uL (0.0-0.2) Urine Collection Type Unknown Urine Color Yellow Urine Clarity Clear Urine pH 5.5 (<5.0-8.0) Urine Specific [place] 1.025 (1.000-1.030) Urine Protein Negative mg/dL (NEG-TRACE) Urine Glucose (UA) Negative mg/dL (NEG) Urine Ketones (Stick) >=80 mg/dL (NEG) Urine Blood Negative (NEG) Urine Nitrite Negative (NEG) Urine Bilirubin Negative (NEG) Urine Urobilinogen Dipstick 0.2 mg/dL (0.2 mg/dL) Urine Leukocyte Esterase Negative (NEG) Urine RBC 0 /HPF (0-2) Urine WBC 1-4 /HPF (0-4) Urine Squamous Epithelial Cells Many /LPF Urine Calcium Phosphate Crystals /HPF Urine Bacteria Few /HPF (0-FEW) Urine Mucus Marked /LPF Treponema pallidum Antibody Nonreactive (Nonreactive) Laboratory Tests Test 03/06/20 05:18 White Blood Count 11.1 x10^3/uL (4.0-11.0) Red Blood Count 3.46 x10^6/uL (3.50-5.40) Hemoglobin 11.0 g/dL (12.0-15.5) Hematocrit 32.3 % (36.0-47.0) Mean Corpuscular Volume 93 fL (79-100) Mean Corpuscular Hemoglobin 32 pg (25-35) Mean Corpuscular Hemoglobin Concent 34 g/dL (31-37) Red Cell Distribution Width 14.0 % (11.5-14.5) Platelet Count 186 x10^3/uL (140-400) Neutrophils (%) (Auto) 75 % (31-73) Lymphocytes (%) (Auto) 15 % (24-48) Monocytes (%) (Auto) 8 % (0-9) Eosinophils (%) (Auto) 1 % (0-3) Basophils (%) (Auto) 0 % (0-3) Neutrophils # (Auto) 8.4 x10^3/uL (1.8-7.7) Lymphocytes # (Auto) 1.7 x10^3/uL (1.0-4.8) Monocytes # (Auto) 0.9 x10^3/uL (0.0-1.1) Eosinophils # (Auto) 0.2 x10^3/uL (0.0-0.7) Basophils # (Auto) 0.0 x10^3/uL (0.0-0.2) Medications Current Medications Sodium Chloride (Normal Saline Flush) 3 ml QSHIFT PRN IV AFTER MEDS AND BLOOD DRAWS; Start 03/04/20 at 19:00; Status Cancel Ringer's Solution 1,000 ml @ 125 mls/hr Q8H IV Last administered on 03/05/20at 13:49; Start 03/04/20 at 18:48 Butorphanol Tartrate (Stadol) 1 mg PRN Q1HR PRN IVP mild to moderate labor pain; Start 03/04/20 at 19:00 Butorphanol Tartrate (Stadol) 2 mg PRN Q1HR PRN IVP Severe labor pain; Start 03/04/20 at 19:00 Fentanyl Citrate (Fentanyl 2ml Vial) 50 mcg PRN Q30MIN PRN IVP Mild to moderate pain; Start 03/04/20 at 19:00 Fentanyl Citrate (Fentanyl 2ml Vial) 100 mcg PRN Q30MIN PRN IVP Severe pain; Start 03/04/20 at 19:00 Acetaminophen (Tylenol) 650 mg PRN Q6HRS PRN PO MILD PAIN / TEMP > 100.3'F; Start 03/04/20 at 19:00; Status Cancel Ondansetron HCl (Zofran) 4 mg PRN Q4HRS PRN IVP NAUSEA/VOMITING; Start 03/04/20 at 19:00 Terbutaline Sulfate (Brethine) 0.25 mg 1X PRN PRN SQ SEE COMMENTS; Start 03/04/20 at 19:00; Stop 03/05/20 at 18:59; Status DC Lidocaine HCl (Xylocaine 1% Pf 30ml Vial) 30 ml 1X PRN PRN INJ SEE COMMENTS; Start 03/04/20 at 19:00; Stop 03/06/20 at 18:59 Oxytocin/Sodium Chloride 500 ml @ 0 mls/hr CONT PRN IV SEE I/O RECORD; Start 03/04/20 at 19:00 Oxytocin/Sodium Chloride 500 ml @ 0 mls/hr CONT PRN PRN IV Post delivery bleeding; Start 03/04/20 at 19:00 Ibuprofen (Motrin) 800 mg PRN Q6HRS PRN PO PAIN; Start 03/04/20 at 19:00; Status Cancel Penicillin G Potassium [id number] unit/Dextrose 100 ml @ 100 mls/hr 1X ONCE IV Last administered on 03/04/20at 20:51; Start 03/04/20 at 20:00; Stop 03/04/20 at 20:59; Status DC Penicillin G Potassium [id number] unit/Dextrose 50 ml @ 100 mls/hr Q4H IV Last administered on 03/05/20at 13:48; Start 03/05/20 at 00:00; Stop 03/06/20 at 12:08; Status DC Dinoprostone (Cervidil) 10 mg 1X ONCE VG Last administered on 03/04/20at 20:00; Start 03/04/20 at 20:00; Stop 03/04/20 at 20:01; Status DC Nifedipine (Procardia Xl) 60 mg DAILY PO Last administered on 03/06/20at 08:56; Start 03/05/20 at 09:00 Oxytocin/Sodium Chloride (Oxytocin Premix Infusion) 30 unit STK-MED ONCE IV ; Start 03/05/20 at 06:00; Stop 03/05/20 at 13:13; Status DC Hydralazine HCl (Apresoline Inj) 5 mg PRN Q15MIN PRN IVP ELEVATED BP, SEE COMMENTS; Start 03/05/20 at 16:15 Sodium Chloride (Normal Saline Flush) 10 ml QSHIFT PRN IV AFTER MEDS AND BLOOD DRAWS; Start 03/05/20 at 17:00 Oxytocin/Sodium Chloride 500 ml @ 62.5 mls/hr CONT PRN IV SEE I/O RECORD; Start 03/05/20 at 17:00; Stop 03/06/20 at 00:59; Status DC Acetaminophen (Tylenol) 650 mg PRN Q6HRS PRN PO MILD PAIN / TEMP > 100.3'F; Start 03/05/20 at 17:00 Ibuprofen (Motrin) 800 mg PRN Q8HRS PRN PO INFLAMMATION/PAIN PREVENTION Last administered on 03/06/20at 08:56; Start 03/05/20 at 17:00 Docusate Sodium (Colace) 100 mg PRN BID PRN PO HARD STOOL Last administered on 03/06/20at 08:56; Start 03/05/20 at 17:00 Magnesium Hydroxide (Milk Of Magnesia) 2,400 mg PRN DAILY PRN PO CONSTIPATION; Start 03/05/20 at 17:00 Al Hydroxide/Mg Hydroxide (Mylanta Plus Xs) 30 ml PRN Q4HRS PRN PO HEARTBURN / GAS; Start 03/05/20 at 17:00 Simethicone (Gas-X) 80 mg PRN AFTMEALHC PRN PO GAS / BLOATING; Start 03/05/20 at 17:00 Benzocaine (Americaine) 1 spray PRN QID PRN TP TOPICAL PAIN Last administered on 03/05/20at 19:31; Start 03/05/20 at 17:00 Phenyleph/Shark Oil/Min Oil/Petrol (Preparation H) 1 dev PRN QID PRN RC RECTAL PAIN; Start 03/05/20 at 17:00 Hydrocortisone (Cortaid) 1 dev PRN QID PRN TP PERINEAL PAIN; Start 03/05/20 at 17:00 Ferrous Sulfate (Feosol) 325 mg BIDWMEALS PO ; Start 03/06/20 at 08:00 Zolpidem Tartrate (Ambien) 5 mg PRN QHS PRN PO INSOMNIA, MAY REPEAT X1; Start 03/05/20 at 17:00 Info (Do NOT chart on this placeholder) 1 ea 1X PRN PRN MC SEE COMMENTS; Start 03/05/20 at 17:00 Info (Do NOT chart on this placeholder) 1 ea 1X PRN PRN MC SEE COMMENTS; Start 03/05/20 at 17:00 Oxycodone/ Acetaminophen (Percocet 5/325) 2 tab PRN Q4HRS PRN PO MODERATE PAIN, SEVERE PAIN; Start 03/05/20 at 17:00 Multivitamins (Thera M Plus) 1 tab DAILY PO Last administered on 03/06/20at 08:56; Start 03/06/20 at 09:00 Active Scripts Active Omeprazole 20 Mg Capsule. 1 Cap PO DAILY 30 Days Reported Percocet 5-325 mg Tablet (Oxycodone HCl/Acetaminophen) 1 Each Tablet 1-2 Each PO PRN Q4-6HRS PRN Multi Tablet (Pnv No.122/Iron/Folic Acid) 1 Each Tablet 1 Tab PO DAILY 30 Days Exam Abd: soft, non tender, fundus firm Assessment PPD#1 s/p Plan of Care: Continue current Tx, Mgmt FELIZ LANG Jr, MD Mar 06, 2020 12:18
[2020-03-06 17:08] VITALS: BP 125/88
[2020-03-06 23:11] VITALS: BP 131/84
[2020-03-07 05:14] VITALS: BP 135/81
[2020-03-07] MEDS: DOCUSATE SODIUM 100 MG CAPSULE. PO PRN (08:18)
[2020-03-07] MEDS: MULTIVITAMIN with MINERAL TABLET. PO SCH (08:18)
[2020-03-07] MEDS: IBUPROFEN 400 MG TABLET. PO PRN (08:19)
--- NOTE | 2020-03-07 10:26 | PDOC3 ---
OB DISCHARGE SUMMARY DATE OF ADMISSION: 03/04/20 DATE OF DISCHARGE: 03/07/20 REASON FOR ADMISSION: Induction of labor (CHTN) INTRAPARTUM PROCEDURES: Spontanous Vag Deliv DISCHARGE DIAGNOSIS: Term Delivered DISCHARGE INFORMATION: Activity (ad joseluis), Diet (regular), Instructions (pelvic rest x 6 wks) HOSPITAL COURSE Term gestation delivered vaginally without complications. FELIZ LANG Jr, MD Mar 07, 2020 10:26
[2020-03-07] MEDS ORDERED: IBUP-1027 PO (10:28)
[2020-03-07] MEDS ORDERED: NIFE30TA95 PO (10:28)
--- NOTE | 2020-03-07 10:28 | DISCH ---
DISCHARGE INSTRUCTIONS Condition on Discharge Condition on Discharge: Stable Activity After Discharge Activity Instructions for Disc: Activity as tolerated Lifting Instructions after Dis: No heavy lifting Driving Instructions after Dis: Do not drive today Diet after Discharge Diet after Discharge: Regular Contacting the DRRiley after DC Call your doctor for: Concerns you may have Follow-Up Follow up with: Dr. Kenney in 6 wks. FELIZ KENNEY Jr, MD Mar 07, 2020 10:28
[2020-03-07 12:56] VITALS: BP 135/89
--- NOTE | 2020-03-07 12:57 | NUR ---
Discharge Discharge instructions given to patient at this time, no questions or concerns noted. To follow up in 6 weeks. Patient ambulated off unit with all her belongings.
--- NOTE | 2020-03-11 12:06 | PATHOLOGY ---
[facility] Accession Number: [id number] . 01 Material submitted: . placenta - PLACENTA . 01 Clinical history: . IOL, , CHRONIC HTN APGARS BABY GIRL 8,8,10 BORN AT 1640 . 02 Diagnosis: Placenta, vaginal delivery: - Mature, ibarra placenta weighing 520 grams (at approximately at the 60th percentile for a 38 week gestation). - Three vessel umbilical cord, measuring approximately 48 cm in length, with eccentric insertion into the chorionic plate. - Meconium staining of membranes. - Recent retromembranous and retroplacental hematoma. - Laminar decidual necrosis. - Decidual pseudocyst formation. - Chronic lymphocytic deciduitis. - Chronic villitis, patchy with associated areas of acute intervillositis. (MLK/db; 03/08/2020) LBQ 03/11/2020 1105 Local . 02 Electronically signed: . Stefano Marshall MD, Pathologist NPI- [id number] . 01 Gross description: . The specimen is received in formalin labeled "[place], [place], placenta" and consists of an oval ibarra placenta measuring 18.8 x 16.0 x 3.0 cm and weighing 520 g after removal of membranes and umbilical cord. The membranes are pink-rosado, thin, translucent with moderate to membranous clot. The surface is bluegray and well vascularized with an eccentrically inserted 3 vessel umbilical cord, 4.6 cm from edge. The cord measures 47.7 cm in length and ranging from 1.1-2.1 cm in diameter with no true knots. The maternal surface shows complete and intact cotyledons with moderate adherent blood clot (approximately 50%). Sectioning reveals a maroon-red and spongy parenchyma with no gross lesions. Gun Stocker sections are submitted as follows: . A1: Surface vessels A2: Umbilical cord and membrane rolls A3-A4 full-thickness section A5: Maternal surface (SDY; 03/07/2020) SYU/SYU 03/07/2020 1123 Local . 02 Pathologist provided ICD-10: O77.0, Z37.0, Z3A.38 . 02 CPT . 458693 Specimen Comment: A courtesy copy of this report has been sent to [phone] Specimen Comment: Report sent to Performed at: 01 [facility] [address] [place] [id number] MD Cliff Riley MD Phone: [phone] Performed at: 02 [place] [id number] [address] [id number] MD Dmitriy Mack MD Phone: [phone]
== END 2020-03-07 13:12 | disposition home or self-care (01) | DRG 807 ==
LOC: 3 SO LND 18:33 → 3 NORTH 03-05 20:50
PROVIDERS: ADMIT Obstetrics & Gynecology; ATTEND Obstetrics & Gynecology
PROC: 10E0XZZ Delivery of Products of Conception, External Approach (ICD-10-PCS; principal; 2020-03-05)
DX: O99.824 Streptococcus B carrier state complicating childbirth (principal); Z37.0 Single live birth; O10.92 Unspecified pre-existing hypertension complicating childbirth; Z3A.38 38 weeks gestation of pregnancy
CPT/HCPCS: 36415; 81001; 85025; 86592; 86850; 86900; 86901; 88307; J2540; J2590; J7060; J7120; G0378